=== PATIENT | female | born 1975 | race Caucasian/White ===

== ENCOUNTER → 2017-04-10 | Outpatient (CLI) | payer OTHER ==
[2017-04-10 13:20] LABS: FREE T4 0.92 NG/DL (0.76-1.46); HCG, SERUM QUANTITATIVE < 1.0 MIU/ML
[2017-04-10 20:10] LABS: PROLACTIN 4.5 NG/ML
== END ==
LOC: M RAD 11:07
DX: N94.6 Dysmenorrhea, unspecified (principal)
CPT/HCPCS: 76856

== ENCOUNTER → 2017-07-30 | Outpatient (REF) | payer OTHER ==
[2017-08-02 14:59] LABS: HPV HYBRID CAPTURE II Positive (Negative)
== END ==
LOC: M LAB REF 13:30
DX: Z12.4 Encounter for screening for malignant neoplasm of cervix (principal)